=== PATIENT | female | born 1995 ===

== ENCOUNTER 2018-03-22 14:29 | Inpatient (IN) | payer OTHER ==
[~2018-03-22] VITALS: Ht 154.9 cm; Wt 3.2 kg
[2018-04-13] MEDS ORDERED: ASPIR 8181 MG PO (00:38)
[2018-04-13] MEDS ORDERED: PRENATAL 19 TA1 EAC1 PO (00:39)
== END 2018-04-16 14:25 | disposition home or self-care (01) | DRG 766 ==
LOC: LDR 03-29 15:00 → OB/GYN 04-12 23:25 → LDR 04-13 01:00 → OB/GYN 04-13 19:07
PROVIDERS: Specialist
PROC: 3E0P7VZ Introduction of Hormone into Female Reproductive, Via Natural or Artificial Opening (ICD-10-PCS; 2018-04-13)
PROC: 3E033VJ Introduction of Other Hormone into Peripheral Vein, Percutaneous Approach (ICD-10-PCS; 2018-04-13)
PROC: BY4FZZZ Ultrasonography of Third Trimester, Single Fetus (ICD-10-PCS; 2018-04-13)
PROC: 4A033R1 Measurement of Arterial Saturation, Peripheral, Percutaneous Approach (ICD-10-PCS; 2018-04-13)
PROC: 4A1HXCZ Monitoring of Products of Conception, Cardiac Rate, External Approach (ICD-10-PCS; 2018-04-13)
PROC: 10D00Z1 Extraction of Products of Conception, Low, Open Approach (ICD-10-PCS; principal; 2018-04-13 17:00)
DX: O61.0 Failed medical induction of labor (principal); O36.8130 Decreased fetal movements, third trimester, not applicable or unspecified; Z3A.39 39 weeks gestation of pregnancy; Z37.0 Single live birth